=== PATIENT | female | born 1965 | race Caucasian/White ===

== ENCOUNTER 2018-05-30 15:24 | Outpatient (CLI) | payer BC ==
--- NOTE | 2018-05-30 15:50 | RAD ---
CHEST TWO VIEWS: History: Fever. FINDINGS: Heart size is normal. The lungs are clear. No pneumonia, edema, or pleural effusion. IMPRESSION: No acute intrathoracic disease. POS: [facility]
== END 2018-05-30 15:25 | disposition home or self-care (01) ==
LOC: RAD-FRANK 15:24
PROVIDERS: ATTEND Nurse Practitioner Family
DX: R50.9 Fever, unspecified (principal)
CPT/HCPCS: 71046